=== PATIENT | male | born 1950 ===

== ENCOUNTER 2024-02-06 05:10 | Day surgery (SDC) | payer OTHER ==
[~2024-02-06] VITALS: Ht 172.7 cm; Wt 120.2 kg
[~2024-02-06 05:10] MED LIST: ARICEPT10 MG PO; DEPO-TESTO200 MG/1 M IM; GEMFIBROZIL600 MG PO; UROXATRAL10 MG PO; [UNRECOGNIZED DRUG - OTHER] PO
[2024-02-06] MEDS ORDERED: METRONIDAZOLE/SODIUM CHLORIDE 500 MG/100 ML PIGGYBACK IV ONE ×2 (06:22→07:45)
[2024-02-06] MEDS ORDERED: CEFTRIAXONE SODIUM 2,000 MG VIAL ONE (06:22)
[2024-02-06] MEDS ORDERED: LIDOCAINE HCL 1%/EPINEPHRINE 20ML VIAL IJ ONE ×2 (07:10→07:45)
[2024-02-06] MEDS ORDERED: BUPIVACAINE HCL 0.5% 50ML VIAL ONE (07:10)
[2024-02-06] MEDS ORDERED: HEMOSTATIC MATRIX 1 KIT KIT TOP ONE ×2 (07:10→07:45)
[2024-02-06] MEDS ORDERED: POVIDONE-IODINE 118 ML BOTT TOP ONE ×2 (07:10→07:45)
[2024-02-06] MEDS ORDERED: DIBUCAINE 30 GM TUBE RECTAL NR (07:45)
[2024-02-06] MEDS ORDERED: CEFTRIAXONE SODIUM 2,000 MG VIAL IV ONE (07:45)
[2024-02-06] MEDS ORDERED: BUPIVACAINE HCL/PF 0.25% 50 ML VIAL IJ ONE (07:45)
[2024-02-06] MEDS ORDERED: NEURONTIN300 MG PO (08:50)
[2024-02-06] MEDS ORDERED: CELECOXIB200 MG PO (08:50)
[2024-02-06] MEDS ORDERED: PERCOCET 5-3251 EACH PO (08:50)
== END 2024-02-06 12:25 | disposition home or self-care (01) ==
LOC: CIR.AMB 05:10
PROVIDERS: ATTEND Surgery
DX: K64.3 Fourth degree hemorrhoids (principal); K64.2 Third degree hemorrhoids; K64.4 Residual hemorrhoidal skin tags; K62.5 Hemorrhage of anus and rectum; E78.00 Pure hypercholesterolemia, unspecified; E66.9 Obesity, unspecified; N40.0 Benign prostatic hyperplasia without lower urinary tract symptoms; R41.3 Other amnesia